=== PATIENT | female | born 1930 | race Caucasian/White ===

== ENCOUNTER 2017-01-19 05:28 | Observation (INO) | payer MEDICARE, BC ==
[2017-01-19] MEDS ORDERED: Scopolamine 1.5 MG Transdermal Patch TOP SCH (06:30)
[2017-01-19] MEDS ORDERED: Lactated Ringers 1,000 ML IV SCH (06:30)
[2017-01-19] MEDS ORDERED: Thrombin (Bovine) 5,000 Unit Kit ONE (06:45)
[2017-01-19] MEDS ORDERED: Povidone-Iodine 10% Soln 118.25 ML Bottle ONE (06:45)
[2017-01-19] MEDS ORDERED: ceFAZolin 2 GM in Sodium Chloride 0.9% 50 ML IV ONE (07:15)
[2017-01-19] MEDS ORDERED: Tranexamic Acid 720 MG in Sodium Chloride 0.9% 50 ML IV SCH (07:45)
[2017-01-19] MEDS ORDERED: Ropivacaine 49.25 ML, Ketorolac 30 MG, EPINEPHrine 0.5 MG, cloNIDine 80 MCG, Sodium Chl... INJECT ONE ×5 (08:00)
--- NOTE | 2017-01-19 09:14 | PCM.HP ---
H&P History of Present Illness - General Date of Service: 01/19/17 Admit Problem/Dx: Admission Diagnosis/Problem Admission Diagnosis/Problem Chest pain Source of Information: Patient, Family, Old Records, Provider, RN Notes Reviewed History Limitations: Reports: No Limitations - History of Present Illness Initial Comments - Free Text/Narative: Ms. Martines is an 86-year-old woman who is admitted from the home care rn unit for further evaluation and management of chest pain. She was scheduled for thoracic spine surgery today with Dr. Odilon Shanks. When she arrived in the home care rn unit for surgery this morning reported that she been experiencing some left shoulder and chest pain since she got up this morning. Pain lasted approximately 3 hours and was described as an ache occurring in the left shoulder and radiating into the chest. One previous episode of similar pain earlier this week that lasted approximately one half hour and also experience some chest pain and shoulder pain last night. Pain is possibly positional in nature although she states that it's different than the pain she is experienced in the past related to her musculoskeletal shoulder problems. She does have risk factors for coronary artery disease including her age, hypercholesterolemia, and long-standing type 2 diabetes mellitus. Troponin level is normal, EKG shows a right bundle branch block but no acute ST segment changes. Heart score is 4. Middle Back Pain Score (Numeric/FACES): 6 - Related Data Allergies/Adverse Reactions: Allergies Allergy/AdvReac Type Severity Reaction Status Date / Time metformin AdvReac Diarrhea Verified 01/18/17 15:01 morphine AdvReac Nausea and Verified 01/19/17 07:01 Vomiting Home Medications: Home Meds Blood Sugar Diagnostic [Accu-Chek Alysha Plus] 1 strip .ROUTE ASDIRECTED [History] Omeprazole 20 mg PO DAILY 12/21/16 [History] Pioglitazone [Actos] 15 mg PO DAILY 12/21/16 [History] Sulfamethoxazole/Trimethoprim [Sulfamethoxazole-Tmp Ds Tablet] 1 tab PO BID 05/28 [History] Past Medical History HEENT History: Reports: Cataract, Hard of Hearing Cardiovascular History: Reports: None Respiratory History: Reports: None Gastrointestinal History: Reports: GERD, Hiatal Hernia, Other (See Below) Other Gastrointestinal History: diverticulitis Genitourinary History: Reports: Renal Calculus, UTI, Recurrent [employer]ING [employer]OR History: Reports: Other OB/BYN History: parity: 12 gravity: 12, all vaginal deliveries Musculoskeletal History: Reports: Back Pain, Chronic Endocrine/Metabolic History: Reports: Diabetes, Type II Hematologic History: Reports: Blood Transfusion(s) Oncologic (Cancer) History: Reports: None - Infectious Disease History Infectious Disease History: Reports: Chicken Pox, Measles, Mumps, Pertussis ( Whooping Cough), Scarlet Fever, Shingles - Past Surgical History HEENT Surgical History: Reports: Cataract Surgery GI Surgical History: Reports: Appendectomy, Colonoscopy, EGD, Hernia, Abdominal Other GI Surgeries/Procedures: "bowel problems" Female Surgical History: Reports: Hysterectomy, Kidney stone extraction, Salpingo-Oophorectomy Other Female Surgeries/Procedures: type 2 diabetic Endocrine Surgical History: Reports: None Other Neurological Surgeries/Procedures: sensation: changes in LEs: left lateral tibial region: decrease in sensation. radicular pain: none now, occasional Musculoskeletal Surgical History: Reports: Shoulder Surgery, Other (See Below) Other Musculoskeletal Surgeries/Procedures:: bilateral rotator cuff repair and back surgery to L4-5, according to patient Social & Family History - Family History Family Medical History: Noncontributory - Tobacco Use Smoking Status *Q: Never Smoker - Caffeine Use Caffeine Use: Reports: Coffee - Recreational Drug Use Recreational Drug Use: No H&P Review of Systems - Review of Systems: Review Of Systems: See Below General: Reports: No Symptoms HEENT: Reports: No Symptoms Pulmonary: Reports: No Symptoms Cardiovascular: Reports: Chest Pain. Denies: Palpitations, Dyspnea on Exertion , Orthopnea, PND, Edema, Lightheadedness, Syncope Gastrointestinal: Reports: No Symptoms Genitourinary: Reports: No Symptoms Musculoskeletal: Reports: Back Pain Skin: Reports: No Symptoms Psychiatric: Reports: No Symptoms Neurological: Reports: No Symptoms Hematologic/Lymphatic: Reports: No Symptoms Immunologic: Reports: No Symptoms Exam - Exam Exam: See Below - Vital Signs Vital Signs: Last Vital Signs Temp 98.1 F 01/19/17 05:46 Pulse 98 01/19/17 05:46 Resp 18 01/19/17 05:46 BP 123/70 01/19/17 05:46 Pulse Ox 96 01/19/17 05:46 Weight: 159 lb 7 oz - Exam Quality Assessment: DVT Prophylaxis. No: Urinary Catheter General: Alert, Oriented, Cooperative HEENT: Conjunctiva Clear, Hearing Intact, Mucosa Moist & [place], Normal Nasal Septum, Posterior Pharynx Clear, Pupils Equal Neck: Supple, Trachea Midline, +2 Carotid Pulse wo Bruit Lungs: Clear to Auscultation, Normal Respiratory Effort Cardiovascular: Regular Rate, Regular Rhythm, Normal S1, Normal S2. No: Systolic Murmur, Diastolic Murmur Abdomen: Normal Bowel Sounds, Soft Back Exam: Normal Inspection, Full Range of Motion, Vertebral Tenderness Extremities: 3, Normal Inspection, 10 Skin: Warm, Dry, Intact Neurological: Cranial Nerves Intact, Normal Speech, Normal Tone. No: Focal Deficit Neuro Extensive - Mental Status: Alert, Oriented x3, Normal Mood/Affect, Normal Cognition, Memory Intact - Patient Data Lab Results Last 24 hrs: Laboratory Results - last 24 hr 01/19/17 01/19/17 01/19/17 Range/Units 07:10 07:12 07:14 WBC 7.2 (4.5-11.0) K/uL RBC 3.89 (3.30-5.50) M/uL Hgb 11.3 L (12.0-15.0) g/dL Hct 35.8 L (36.0-48.0) % MCV 92 (80-98) fL MCH 29 (27-31) pg MCHC 32 (32-36) % Plt Count 255 (150-400) K/uL Neut % (Auto) 55 (36-66) % Lymph % (Auto) 32 (24-44) % Bartholomew % (Auto) 11 H (2-6) % Eos % (Auto) 1 L (2-4) % Baso % (Auto) 0 (0-1) % Sodium (140-148) mmol/L Potassium (3.6-5.2) mmol/L Chloride (100-108) mmol/L Carbon Dioxide (21-32) mmol/L Anion Gap (5.0-14.0) mmol/L BUN (7-18) mg/dL Creatinine (0.6-1.0) mg/dL Est Cr Clr Drug Dosing mL/min Estimated GFR (MDRD) (>60) Glucose (74-106) mg/dL Calcium (8.5-10.1) mg/dL CK-MB (CK-2) 1.1 (0-3.6) mg/mL Troponin I < 0.017 (0.000-0.056) ng/mL 01/19/17 Range/Units 07:14 WBC (4.5-11.0) K/uL RBC (3.30-5.50) M/uL Hgb (12.0-15.0) g/dL Hct (36.0-48.0) % MCV (80-98) fL MCH (27-31) pg MCHC (32-36) % Plt Count (150-400) K/uL Neut % (Auto) (36-66) % Lymph % (Auto) (24-44) % Bartholomew % (Auto) (2-6) % Eos % (Auto) (2-4) % Baso % (Auto) (0-1) % Sodium 142 (140-148) mmol/L Potassium 4.0 (3.6-5.2) mmol/L Chloride 106 (100-108) mmol/L Carbon Dioxide 28 (21-32) mmol/L Anion Gap 12.0 (5.0-14.0) mmol/L BUN 28 H (7-18) mg/dL Creatinine 1.6 H (0.6-1.0) mg/dL Est Cr Clr Drug Dosing 22.20 mL/min Estimated GFR (MDRD) 31 L (>60) Glucose 133 H (74-106) mg/dL Calcium 9.0 (8.5-10.1) mg/dL CK-MB (CK-2) (0-3.6) mg/mL Troponin I (0.000-0.056) ng/mL Result Diagrams: 01/19/17 07:14 01/19/17 07:14 *Q Meaningful Use (ADM) - VTE *Q VTE Criteria *Q: - VTE Risk Assess *Q Each Risk Factor Represents 1 Point: None Total Score 1 Point Risk Factors: 0 Each Risk Factor Represents 2 Points: None Total Score 2 Point Risk Factors: 0 Each Risk Factor Represents 3 Points: Age 75 Years or Greater Total Score 3 Point Risk Factors: 3 Each Risk Factor Represents 5 Points: None Total Score 5 Point Risk Factors: 0 Venous Thromboembolism Risk Factor Score *Q: 3 - Stroke *Q Stroke Criteria *Q: - AMI *Q AMI Criteria *Q: Problem List Initiated/Reviewed/Updated: Yes Orders Last 24hrs: Active Orders 24 hr Category Date Time Status Patient Status Manage Transfer [TRANSFER] Routine ADT 01/19/17 09:01 Ordered EKG Documentation Completion [RC] ASDIRECTED Care 01/19/17 07:08 Active TYPE AND SCREEN [BBK] Routine Lab 01/19/17 05:40 Ordered Lactated Ringers [Ringers, Lactated] 1,000 ml Med 01/19/17 06:30 Active IV ASDIRECTED Scopolamine [Transderm-Scop] Med 01/19/17 06:30 Active 1.5 mg TOP Q72H Tranexamic Acid [Cyklokapron] 720 mg Med 01/19/17 07:45 Active Sodium Chloride 0.9% [Normal Saline] 50 ml IV Q3H Sequential Compression Device [OM.PC] Routine Oth 01/19/17 07:00 Ordered Resuscitation Status Routine Resus Stat 01/19/17 09:03 Ordered EKG 12 Lead [EK] Stat Ther 01/19/17 07:06 Ordered Medication Orders Lactated Ringer's (Ringers, Lactated) 1,000 mls @ 0 mls/hr IV ASDIRECTED MARYB[facility] PRN Reason: KVO Last Admin: 01/19/17 06:44 Dose: 25 mls/hr Tranexamic Acid 720 mg/ Sodium (Chloride) 57.2 mls @ 228.8 mls/hr IV Q3H [facility] Stop: 01/19/17 10:59 Scopolamine (Transderm-Scop) 1.5 mg TOP Q72H MARYBETH Stop: 01/22/17 04:30 Last Admin: 01/19/17 06:27 Dose: 1.5 mg Assessment/Plan Comment:: ASSESSMENT AND PLAN LEFT SHOULDER AND CHEST PAIN-symptoms mildly to moderately suspicious, pain is likely musculoskeletal in nature but different than what she is experienced in the past. She does have risk factors for coronary artery disease as well as an underlying right bundle branch block. Calculated HEART score is 4. -Cancel elective surgery -Observation admission to rule out myocardial infarction -Serial troponin levels -Deep scan Cardiolite study in a.m. TYPE 2 DIABETES MELLITUS -Continue outpatient medical regimen -4 times a day glucometers CHRONIC KIDNEY DISEASE STAGE III -Monitor urine output and renal function during hospital stay BACK AND RIGHT LEG PAIN -Surgery on hold pending cardiac evaluation MAINTENANCE ISSUES -DVT prophylaxis; Lovenox 30 mg subcutaneous daily -GI prophylaxis; continue outpatient omeprazole -Bains catheter; not indicated -Nutrition; consistent carb diet -Nicotinic dependence; not required CODE STATUS-FULL CODE ADMISSION STATUS-this patient will be admitted to observation status, expect no more than a one night hospital stay for evaluation and management of problems as outlined above. DISPOSITION-anticipate discharge to home after the hospital stay. PRIMARY CARE PROVIDER-
[2017-01-19] MEDS ORDERED: oxyCODONE 5 MG Tab PO PRN (09:39)
[2017-01-19] MEDS ORDERED: 50% Dextrose in Water 50 ML Syringe IV PRN (09:39)
[2017-01-19] MEDS ORDERED: Acetaminophen 325 MG Tab PO PRN (09:39)
[2017-01-19] MEDS ORDERED: Sodium Chloride 0.9% 10 ML Syringe FLUSH PRN (09:39)
[2017-01-19] MEDS ORDERED: Ondansetron 4 MG/2 ML SDV IV PRN (09:39)
[2017-01-19] MEDS ORDERED: Docusate Sodium 100 MG Cap PO PRN (09:39)
[2017-01-19] MEDS ORDERED: Polyethylene Glycol 3350 Powder 17 GM Packet PO PRN (09:39)
[2017-01-19] MEDS ORDERED: Glucose Gel 15 GM in 37.5 GM Tube PO PRN (09:39)
[2017-01-19] MEDS ORDERED: Magnesium Hydroxide 400 MG/5 ML Susp 30 ML Cup PO PRN (09:39)
[2017-01-19] MEDS: Enoxaparin 30 MG/0.3 ML Syringe SUBCUT SCH (10:17)
[2017-01-19] MEDS: PIOGLITAZONE 15 MG PO SCH (11:04)
[2017-01-19] MEDS: Aspirin 81 MG Tab.Chew PO SCH (11:05)
[2017-01-19] MEDS: OMEPRAZOLE 20MG (PTOM) PO SCH (11:05)
[2017-01-20] MEDS ORDERED: Non-Formulary Medication 1 Each (Omeprazole [Omeprazole] 20 MG) PO SCH (09:00)
[2017-01-20 09:05] VITALS: BP 145/91
[2017-01-20] MEDS ORDERED: Aminophylline 250 MG/10 ML SDV IVPUSH ONE (09:30)
[2017-01-20] MEDS: Aspirin 81 MG Tab.Chew PO SCH (09:38)
[2017-01-20] MEDS: Enoxaparin 30 MG/0.3 ML Syringe SUBCUT SCH (09:38)
[2017-01-20] MEDS: OMEPRAZOLE 20MG (PTOM) PO SCH (09:38)
[2017-01-20] MEDS: PIOGLITAZONE 15 MG PO SCH (09:38)
--- NOTE | 2017-01-20 11:07 | NM ---
Myocardial Perf Spect Multi INDICATION: Chest pain COMPARISON: None. TECHNIQUE: [employer] Nuclear medicine Cardiolite scan was performed utilizing 29.0 millicuries uptak e technetium 99m sestamibi at stress and 9.8 millicuries of technetium 99m at rest. FINDINGS: The bull's-eye views suggest partially reversible perfusion defects, however these appear fixed on the short, and vertical and horizontal long axis images. Moderate sized, fixed perfusion defects involving the anterior and inferolateral park from the apex to the mid left ventricular myocardium. The remainder of the left ventricular myocardium demonstra wilver homogeneous radiotracer uptake. Wall motion studies are within normal limits. Calculated left ve ntricular ejection fraction measures 76% at stress and 75% at rest. IMPRESSION: 1. 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
--- NOTE | 2017-01-20 14:34 | PCM.DCSUM1 ---
Discharge Summary - Hospital Course Brief History: This patient is an 86-year-old woman who was admitted from the clinical care coordinator unit for further evaluation and management of chest pain. - Discharge Data Discharge Date: 01/20/17 Discharge Disposition: Home, Self-Care 01 Condition: Good - Discharge Diagnosis/Problem(s) (1) Coronary artery disease SNOMED Code(s): 91083114 ICD Code: I25.10 - ATHSCL HEART DISEASE OF [place] CORONARY ARTERY W/O ANG PCTRS Status: Acute (2) Chest pain SNOMED Code(s): 68185388 ICD Code: R07.9 - CHEST PAIN, UNSPECIFIED Status: Acute (3) Spinal stenosis of lumbar region SNOMED Code(s): 84106789 ICD Code: M48.06 - SPINAL STENOSIS, LUMBAR REGION Status: Acute - Patient Summary/Data Hospital Course: Ms. Martines is an 86-year-old woman, who was initially seen and evaluated in the clinical care coordinator unit because of symptoms of chest pain. She had been scheduled for thoracic spine surgery with Dr. Jordan Shanks, but when she presented on the day of surgery reported that she been experiencing some pain in her left shoulder and left upper anterior chest. She reported she had one episode of pain in her chest during the week prior to surgery and on the night prior to surgery each lasting several minutes. She woke early in the morning of surgery and noted pain in her left shoulder radiating into the left chest. She has no previous history of coronary artery disease or other symptoms of chest pain. She felt the pain was different from what she experienced with her shoulder problems. Initial EKG showed no acute ST segment changes but did document underlying right bundle branch block, initial troponin level was within normal range. HEART score was calculated at 4. Because of the elevated Heart score and symptoms of chest pain she was admitted to the hospital to observation status for further evaluation and her surgery with Dr. Shanks was canceled. Follow-up troponin levels remained within normal range and she had no further symptoms of chest pain or pressure. On the day of discharge Deep scan Cardiolite study was performed, this showed 2 areas of previous moderate sized myocardial infarctions but no evidence of acute ischemia or redistribution. She will be discharged home on metoprolol 25 mg twice daily. Activity will be as tolerated and she will resume her usual diet. She is cleared for surgery in 5 days time on her thoracic spine as previously scheduled with Dr. Shanks. - Patient Instructions Diet: Heart Healthy Diet Activity: As Tolerated Other/Special Instructions: Schedule follow-up appointment with primary care provider within [address] Odilon Shanks that the patient is cleared to proceed with surgery on Wednesday, January 25. - Discharge Plan Prescriptions/Med Rec: Metoprolol Tartrate 25 mg PO BID #60 tablet busPIRone [Buspar] 5 mg PO TID PRN #20 tablet PRN Reason: Anxiety Home Medications: Home Meds Blood Sugar Diagnostic [Accu-Chek Alysha Plus] 1 strip .ROUTE ASDIRECTED [History] Omeprazole 20 mg PO DAILY 12/21/16 [History] Pioglitazone [Actos] 15 mg PO DAILY 12/21/16 [History] Sulfamethoxazole/Trimethoprim [Sulfamethoxazole-Tmp Ds Tablet] 1 tab PO BID 05/28 [History] Metoprolol Tartrate 25 mg PO BID #60 tablet 01/20/17 [Rx] busPIRone [Buspar] 5 mg PO TID PRN #20 tablet 01/20/17 [Rx] Patient Handouts: Nonspecific Chest Pain, [id number] - Patient Data Vitals - Most Recent: Last Vital Signs Temp 98.1 F 01/20/17 07:39 Pulse 87 01/20/17 09:04 Resp 23 H 01/20/17 07:00 BP 145/91 H 01/20/17 09:04 Pulse Ox 100 01/20/17 07:00 Weight - Most Recent: 169 lb 4.8 oz I&O - Last 24 hours: Intake & Output 01/19/17 01/20/17 01/20/17 22:59 06:59 14:59 Output Total 700 750 200 Balance -700 -750 -200 Lab Results - Last 24 hrs: Laboratory Results - last 24 hr 01/19/17 01/19/17 Range/Units 14:06 20:19 Troponin I < 0.017 < 0.017 (0.000-0.056) ng/mL Med Orders - Current: Current Medications Discontinued Medications Acetaminophen (Tylenol) 650 mg PO Q4H PRN PRN Reason: Pain (Mild 1-3)/fever Aminophylline (Aminophylline) 125 mg IVPUSH ONETIME ONE Stop: 01/20/17 09:31 Last Admin: 01/20/17 09:30 Dose: 125 mg Aspirin (Aspirin) 81 mg PO DAILY [facility] Last Admin: 01/20/17 09:38 Dose: 81 mg Ropivacaine 49.25 ml/Ketorolac Tromethamine 30 mg/Epinephrine HCl 0.5 mg/ Clonidine HCl 80 mcg/ Sodium Chloride 48.45 ml 0 ml INJECT ONETIME ONE Stop: 01/19/17 08:01 Dextrose (Glutose 15) 15 gm PO ASDIRECTED PRN PRN Reason: Hypoglycemia Dextrose/Water (Dextrose 50% In Water) 50 ml IV ASDIRECTED PRN PRN Reason: Hypoglycemia Docusate Sodium (Colace) 100 mg PO BID PRN PRN Reason: Constipation Enoxaparin Sodium (Lovenox) 30 mg SUBCUT DAILY [facility] Last Admin: 01/20/17 09:38 Dose: 30 mg Cefazolin Sodium 2 gm/ Sodium (Chloride) 50 mls @ 100 mls/hr IV ONETIME ONE Stop: 01/19/17 07:44 Lactated Ringer's (Ringers, Lactated) 1,000 mls @ 0 mls/hr IV ASDIRECTED [facility] PRN Reason: KVO Last Admin: 01/19/17 06:44 Dose: 25 mls/hr Tranexamic Acid 720 mg/ Sodium (Chloride) 57.2 mls @ 228.8 mls/hr IV Q3H [facility] Stop: 01/19/17 10:59 Magnesium Hydroxide (Milk Of Magnesia) 30 ml PO Q12H PRN PRN Reason: Constipation Ondansetron HCl (Zofran) 4 mg IV Q4H PRN PRN Reason: Nausea/Vomiting Oxycodone HCl (Oxycodone) 5 mg PO Q4H PRN PRN Reason: Pain (moderate 4-6) Omeprazole 20mg ( (Ptom)) 0 each PO ACBREAKFAST [facility] Last Admin: 01/20/17 09:38 Dose: 1 each Pioglitazone HCl (Actos) 15 mg PO DAILY [facility] Last Admin: 01/20/17 09:38 Dose: 15 mg Polyethylene Glycol (Miralax) 17 gm PO DAILY PRN PRN Reason: Constipation Povidone Iodine (Betadine 10% Soln) Confirm Administered Dose 1 ml .ROUTE .STK- MED ONE Stop: 01/19/17 06:46 Regadenoson (Lexiscan) 0.4 mg IVPUSH ONETIME ONE Stop: 01/20/17 09:01 Last Admin: 01/20/17 09:10 Dose: 0.4 mg Scopolamine (Transderm-Scop) 1.5 mg TOP Q72H [facility] Stop: 01/22/17 04:30 Last Admin: 01/19/17 06:27 Dose: 1.5 mg Sodium Chloride (Saline Flush) 10 ml FLUSH ASDIRECTED PRN PRN Reason: Keep Vein Open Last Admin: 01/20/17 09:12 Dose: 10 ml Thrombin (Thrombin-Jmi) Confirm Administered Dose 15,000 unit .ROUTE .STK-MED ONE Stop: 01/19/17 06:46 *Q Meaningful Use (DIS) - VTE *Q VTE Criteria *Q: - Stroke *Q Stroke Criteria *Q: - AMI *Q AMI Criteria *Q:
--- NOTE | 2017-01-21 07:08 | STRESS ---
DATE OF SERVICE: 01/20/2017 PROCEDURE: Lexiscan Cardiolite study. TECHNIQUE: Ms. Martines was infused with usual dose of Lexiscan and then received the Cardiolite injection. She noted symptoms of nausea and headache associated with Lexiscan infusion. These symptoms persisted into the postexercise period. She was given 125 mg of intravenous aminophylline and symptoms resolved quickly thereafter. Resting ECG, sinus rhythm, rate of 86, normal axis. There is prolongation of the QRS interval and pattern consistent with right bundle-branch block with associated ST-segment, T-wave abnormalities. Similar findings were noted on the post hyperventilation and standing ECGs. No significant ST-segment changes. T-wave abnormalities from baseline were seen with Lexiscan infusion or during the post infusion. She had no symptoms of chest pain or pressure, but did develop nausea and headache as noted above. There were no significant dysrhythmias noted during the monitoring. IMPRESSION: Unremarkable Lexiscan portion of Lexiscan Cardiolite study. Interpretation of the Cardiolite portion of the study is pending at this time. Papi Ram MD /[id number]
== END 2017-01-20 12:50 | disposition home or self-care (01) ==
LOC: JP.SDS 05:28 → JP.ICU 09:15
PROVIDERS: ADMIT Hospitalist; ATTEND Hospitalist
DX: R07.9 Chest pain, unspecified (principal); M48.06 Spinal stenosis, lumbar region; I25.10 Atherosclerotic heart disease of native coronary artery without angina pectoris; I12.9 Hypertensive chronic kidney disease with stage 1 through stage 4 chronic kidney disease, or unspecified chronic kidney disease; E11.22 Type 2 diabetes mellitus with diabetic chronic kidney disease; I75.022 Atheroembolism of left lower extremity; N18.3 Chronic kidney disease, stage 3 (moderate); K21.9 Gastro-esophageal reflux disease without esophagitis; Z87.442 Personal history of urinary calculi; Z87.440 Personal history of urinary (tract) infections; Z88.5 Allergy status to narcotic agent; Z90.49 Acquired absence of other specified parts of digestive tract; Z88.8 Allergy status to other drugs, medicaments and biological substances; Z90.710 Acquired absence of both cervix and uterus; Z79.899 Other long term (current) drug therapy; Z98.890 Other specified postprocedural states; Z90.722 Acquired absence of ovaries, bilateral
CPT/HCPCS: 36415; 78452; 80048; 82553; 82962; 84484; 85025; 93005; 96372; 96374; A9270; A9500; G0378; J1650; J2785; J7050; J7120; 93010; 93017; 99217; 99219

== ENCOUNTER 2017-01-22 09:23 | Observation (INO) | payer MEDICARE, BC ==
[2017-01-22] MEDS ORDERED: Sodium Chloride 0.9% 10 ML Syringe FLUSH PRN ×2 (09:57→13:59)
--- NOTE | 2017-01-22 10:04 | EDM.PDOC ---
ED HPI GENERAL MEDICAL PROBLEM - General Chief Complaint: Neuro Symptoms/Deficits Stated Complaint: SEIZURES Time Seen by Provider: 01/22/17 09:45 Source of Information: Reports: Patient, Family, Old Records History Limitations: Reports: No Limitations - History of Present Illness INITIAL COMMENTS - FREE TEXT/NARRATIVE: 86 yo female presents with onset of "spells" since yesterday. Her and her daughter who is here with her are worried these spells are seizures. Has no seizure history. Denies DE SOUZA. No tongue biting or urinary incontinence. These spells are brief and self-limited. She tends to slump over with elbows flexed and hands opening and closing each time. Duration is a couple minutes. Sometimes can tell when they are going to start, not always. Has some nausea afterwards. No hx of severe head trauma or strokes. Fell out of her chair and incurred minor injuries with today's spell. Was scheduled for some back surgery here recently and this was put on hold after she reported some left shoulder pain that was worked up and found not to be due to acute cardiac ischemia. Went to [place] yesterday for the same sx's for which she is here today. There she had an unremarkable EKG and blood work. No imaging of her head was performed. Has had hypoglycemia in the past when on metformin, this has been stopped. Recent sx's during her "spells" do not remind her of hypoglycemia. Onset Date: 01/21/17 Duration: Hour(s):, Intermittent Location: Reports: Generalized (no obvious leg involvement.) Quality: Reports: Other (no pain) Severity: Moderate Improves with: Reports: Other (time) Worsens with: Reports: Other (unknown) Context: Reports: Other (unknown) Associated Symptoms: Reports: Nausea/Vomiting (no vomiting), Seizure ( questionable), Syncope (passed out with spell today.). 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: Reports: Other (see below) (none) - Related Data Allergies Allergy/AdvReac Type Severity Reaction Status Date / Time metformin AdvReac Diarrhea Verified 01/18/17 15:01 morphine AdvReac Nausea and Verified 01/19/17 07:01 Vomiting Home Meds: Home Meds Blood Sugar Diagnostic [Accu-Chek Alysha Plus] 1 strip .ROUTE ASDIRECTED [History] Omeprazole 20 mg PO DAILY 12/21/16 [History] Pioglitazone [Actos] 15 mg PO DAILY 12/21/16 [History] Sulfamethoxazole/Trimethoprim [Sulfamethoxazole-Tmp Ds Tablet] 1 tab PO BID 05/28 [History] Metoprolol Tartrate 25 mg PO BID #60 tablet 01/20/17 [Rx] busPIRone [Buspar] 5 mg PO TID PRN #20 tablet 01/20/17 [Rx] Past Medical History HEENT History: Reports: Cataract, Hard of Hearing Cardiovascular History: Reports: None, [place] Respiratory History: Reports: None Gastrointestinal History: Reports: GERD, Hiatal Hernia, Other (See Below) Other Gastrointestinal History: diverticulitis Genitourinary History: Reports: Renal Calculus, UTI, Recurrent HEARING 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: Reports: Other OB/BYN History: parity: 12 gravity: 12, all vaginal deliveries Musculoskeletal History: Reports: Back Pain, Chronic Endocrine/Metabolic History: Reports: Diabetes, Type II Hematologic History: Reports: Blood Transfusion(s) Oncologic (Cancer) History: Reports: None - Infectious Disease History Infectious Disease History: Reports: Chicken Pox, Measles, Mumps, Pertussis ( Whooping Cough), Scarlet Fever, Shingles - Past Surgical History HEENT Surgical History: Reports: Cataract Surgery GI Surgical History: Reports: Appendectomy, Colonoscopy, EGD, Hernia, Abdominal Other GI Surgeries/Procedures: "bowel problems" Female Surgical History: Reports: Hysterectomy, Kidney stone extraction, Salpingo-Oophorectomy Other Female Surgeries/Procedures: type 2 diabetic Endocrine Surgical History: Reports: None Other Neurological Surgeries/Procedures: sensation: changes in LEs: left lateral tibial region: decrease in sensation. radicular pain: none now, occasional Musculoskeletal Surgical History: Reports: Shoulder Surgery, Other (See Below) Other Musculoskeletal Surgeries/Procedures:: bilateral rotator cuff repair and back surgery to L4-5, according to patient Social & Family History - Family History Family Medical History: Noncontributory - Tobacco Use Smoking Status *Q: Never Smoker - Caffeine Use Caffeine Use: Reports: None - Recreational Drug Use Recreational Drug Use: No ED ROS GENERAL - Review of Systems Review Of Systems: See Below Constitutional: Denies: Fever, Diaphoresis, Decreased Appetite HEENT: Reports: No Symptoms Respiratory: Reports: No Symptoms Cardiovascular: Reports: No Symptoms Endocrine: Reports: No Symptoms GI/Abdominal: Reports: Nausea (after the "spell".) : Reports: No Symptoms Musculoskeletal: Reports: No Symptoms Skin: Reports: Bruising (chronic) Neurological: Reports: Seizure (possible), Syncope. Denies: Confusion, Dizziness, Headache Psychiatric: Reports: No Symptoms - Physical Exam Exam: See Below Exam Limited By: No Limitations General Appearance: Alert, WD/WN, No Apparent Distress Eye Exam: Bilateral Eye: EOMI, Normal Inspection, PERRL Ears: Normal External Exam, Normal Canal, Hearing Grossly Normal Nose: Normal Inspection, Normal Mucosa, No Blood Throat/Mouth: Normal Inspection, Normal Lips, Normal Teeth, Normal Oropharynx, Normal Voice, No Airway Compromise, Other (No tongue injury) Head Exam: Atraumatic, Normocephalic Neck: Normal Inspection, Supple, Non-Tender Respiratory/Chest: No Respiratory Distress, Lungs Clear, Other (few scattered rhonchi noted.) Cardiovascular: Regular Rate, Rhythm GI/Abdominal: Normal Bowel Sounds, Soft, Non-Tender, No Distention Neuro Exam (Abbreviated): Alert, Oriented, CN II-XII Intact, Normal Cognition, No Motor/Sensory Deficits Back Exam: Normal Inspection Extremities: Normal Inspection, Normal Range of Motion, Non-Tender, No Pedal Edema Psychiatric: Normal Affect, Normal Mood Skin Exam: Warm, Dry, Intact, Normal Color, No Rash Course - Vital Signs Text/Narrative:: Saline lock, Keppra [address]-minimal sinus dz only Last Recorded V/S: Last Vital Signs Temp 36.5 C 01/22/17 10:20 Pulse 80 01/22/17 10:20 Resp 16 01/22/17 10:20 BP 149/95 H 01/22/17 10:20 Pulse Ox 97 01/22/17 10:20 - Orders/Labs/Meds Orders: Active Orders 24 hr Category Date Time Status Head wo Cont [CT] Stat Exams 01/22/17 09:56 Taken Sodium Chloride 0.9% [Saline Flush] Med 01/22/17 09:57 Active 10 ml FLUSH ASDIRECTED PRN Saline Lock Insert [OM.PC] Routine Oth 01/22/17 09:57 Ordered Medication Orders Sodium Chloride (Saline Flush) 10 ml FLUSH ASDIRECTED PRN PRN Reason: Keep Vein Open Last Admin: 01/22/17 10:05 Dose: 10 ml Meds: Medications Generic Name Dose Route Start Last Admin Trade Name Freq PRN Reason Stop Dose Admin Sodium Chloride 10 ml 01/22/17 09:57 01/22/17 10:05 Saline Flush FLUSH 10 ml ASDIRECTED PRN Administration Keep Vein Open Departure - Departure Time of Disposition: 11:00 Disposition: Home, Self-Care 01 Condition: Fair Clinical Impression: Seizure-like activity Clinical Impression: (Ruled Out): Seizure - Discharge Information Forms: ED Department Discharge - My Orders Last 24 Hours: My Active Orders 01/22/17 09:56 Head wo Cont [CT] Stat 01/22/17 09:57 Sodium Chloride 0.9% [Saline Flush] 10 ml FLUSH ASDIRECTED PRN Saline Lock Insert [OM.PC] Routine - Assessment/Plan Last 24 Hours: My Active Orders 01/22/17 09:56 Head wo Cont [CT] Stat 01/22/17 09:57 Sodium Chloride 0.9% [Saline Flush] 10 ml FLUSH ASDIRECTED PRN Saline Lock Insert [OM.PC] Routine
--- NOTE | 2017-01-22 10:27 | CT ---
Head wo Cont INDICATION: Question seizure, new onset yesterday. COMPARISON: None Total DLP 705. FINDINGS: No acute intracranial hemorrhage, mass, or edema. Mild generalized cerebral and cerebellar volume loss. Minimal low attenuation in the periventricular and subcortical deep white matter is no nspecific, but most compatible with chronic small-vessel ischemic changes. Tiny chronic lacunar infa rct left basal ganglia. Minimal mucosal thickening ethmoid sinuses. Fluid in the inferior right mast oid air cells; this finding can be seen in mastoiditis. Remainder unremarkable. IMPRESSION: No acute intracranial abnormality.
[2017-01-22] MEDS ORDERED: levETIRAcetam 250 MG Tab PO STA (10:36)
[2017-01-22] MEDS ORDERED: Ondansetron 4 MG Tab.DIS PO ONE (11:40)
[2017-01-22] MEDS ORDERED: LORazepam 2 MG/ML MDV IVPUSH ONE (11:47)
--- NOTE | 2017-01-22 13:16 | MR ---
Brain wo Cont INDICATION: ? seizures COMPARISON: CT head from earlier today. FINDINGS: Generalized cerebral and cerebellar volume loss. Mild scattered foci of T2 hyperintensity in the periventricular and subcortical deep white matter that are nonspecific but most compatible wi th chronic small vessel ischemic changes. Tiny chronic lacunar infarct left basal ganglia. No acute or subacute infarct. Dedicated imaging of the temporal lobes demonstrates normal hippocampal formati ons bilaterally. Mild mucosal thickening ethmoid sinuses. Fluid in the right mastoid air cells. Exam otherwise unremarkable. IMPRESSION: No acute intracranial findings. Incidental findings as above.
[2017-01-22] MEDS ORDERED: Polyethylene Glycol 3350 Powder 17 GM Packet PO PRN (13:59)
[2017-01-22] MEDS ORDERED: Magnesium Hydroxide 400 MG/5 ML Susp 30 ML Cup PO PRN (13:59)
[2017-01-22] MEDS ORDERED: 50% Dextrose in Water 50 ML Syringe IV PRN (13:59)
[2017-01-22] MEDS ORDERED: oxyCODONE 5 MG Tab PO PRN (13:59)
[2017-01-22] MEDS ORDERED: Docusate Sodium 100 MG Cap PO PRN (13:59)
[2017-01-22] MEDS ORDERED: Glucose Gel 15 GM in 37.5 GM Tube PO PRN (13:59)
[2017-01-22] MEDS ORDERED: Ondansetron 4 MG/2 ML SDV IV PRN (13:59)
[2017-01-22] MEDS ORDERED: Enoxaparin 40 MG/0.4 ML Syringe SUBCUT SCH (13:59)
[2017-01-22] MEDS ORDERED: Insulin Aspart 100 Units/ML 3 ML Pen SUBCUT SCH (13:59)
[2017-01-22] MEDS ORDERED: LORazepam 2 MG/ML MDV IV PRN (13:59)
[2017-01-22] MEDS ORDERED: Sodium Chloride 0.9% 1,000 ML IV SCH ×2 (14:00→20:00)
[2017-01-22] MEDS ORDERED: Sodium Chloride 0.9% 500 ML IV ONE ×3 (14:10→17:44)
--- NOTE | 2017-01-22 14:10 | PCM.HP ---
H&P History of Present Illness - General Date of Service: 01/22/17 Admit Problem/Dx: Admission Diagnosis/Problem Admission Diagnosis/Problem Seizure Source of Information: Patient, Family, Provider, RN Notes Reviewed History Limitations: Reports: No Limitations - History of Present Illness Initial Comments - Free Text/Narative: Ms. Martines is an 86-year-old woman who is admitted to observation status through the emergency department after experiencing episodes of loss of consciousness associated with transient seizure-like activity. She was hospitalized at this facility on observation status 2 days ago, she had been scheduled for spinal surgery. When she arrived for surgery reported that she been experiencing symptoms of chest pain. 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 She was discharged home on beta ricky therapy with metoprolol 25 mg twice daily and BuSpar 3 times daily. She felt well until yesterday morning, approximately hour and a half after taking her morning medications she felt lightheaded and then experienced loss of consciousness followed by a short episode of seizure activity. Whole episode lasted 30-60 seconds. She was evaluated in the emergency department and veronica and no significant abnormalities were identified. The recommended that she stop taking the BuSpar. She felt somewhat tired during the day yesterday but had no further episodes. This morning she was sitting up shortly after getting up and again felt lightheaded, experienced a syncopal episode and fell to the floor. This second episode was unwitnessed. She had a third episode when driving to the emergency room that lasted approximately 30 seconds and again experienced tonic-clonic movement. Her daughter who witnessed this episode states that she lost consciousness first and then developed the jerking movements. On evaluation in the emergency department CT scan of the head without contrast was obtained and was unremarkable. She experienced a fourth episode while in the emergency department blood pressure had been trending somewhat low but there was no evidence of significant bradycardia or tachycardia. She was fairly alert right after the episode and did not appear to be postictal. MRI of the head was obtained with and without contrast and shows no significant abnormalities. - Related Data Allergies/Adverse Reactions: Allergies Allergy/AdvReac Type Severity Reaction Status Date / Time metformin AdvReac Diarrhea Verified 01/18/17 15:01 morphine AdvReac Nausea and Verified 01/19/17 07:01 Vomiting Home Medications: Home Meds Blood Sugar Diagnostic [Accu-Chek Alysha Plus] 1 strip .ROUTE ASDIRECTED [History] Omeprazole 20 mg PO DAILY 12/21/16 [History] Pioglitazone [Actos] 15 mg PO DAILY 12/21/16 [History] Sulfamethoxazole/Trimethoprim [Sulfamethoxazole-Tmp Ds Tablet] 1 tab PO BID 05/28 [History] Metoprolol Tartrate 25 mg PO BID #60 tablet 01/20/17 [Rx] busPIRone [Buspar] 5 mg PO TID PRN #20 tablet 01/20/17 [Rx] levETIRAcetam [Keppra] 500 mg PO BID #60 tablet 01/22/17 [Rx] Past Medical History HEENT History: Reports: Cataract, Hard of Hearing Cardiovascular History: Reports: None, [place] Respiratory History: Reports: None Gastrointestinal History: Reports: GERD, Hiatal Hernia, Other (See Below) Other Gastrointestinal History: diverticulitis Genitourinary History: Reports: Renal Calculus, UTI, 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: Other OB/BYN History: parity: 12 gravity: 12, all vaginal deliveries Musculoskeletal History: Reports: Back Pain, Chronic Endocrine/Metabolic History: Reports: Diabetes, Type II Hematologic History: Reports: Blood Transfusion(s) Oncologic (Cancer) History: Reports: None - Infectious Disease History Infectious Disease History: Reports: Chicken Pox, Measles, Mumps, Pertussis ( Whooping Cough), Scarlet Fever, Shingles - Past Surgical History HEENT Surgical History: Reports: Cataract Surgery GI Surgical History: Reports: Appendectomy, Colonoscopy, EGD, Hernia, Abdominal Other GI Surgeries/Procedures: "bowel problems" Female Surgical History: Reports: Hysterectomy, Kidney stone extraction, Salpingo-Oophorectomy Other Female Surgeries/Procedures: type 2 diabetic Endocrine Surgical History: Reports: None Other Neurological Surgeries/Procedures: sensation: changes in LEs: left lateral tibial region: decrease in sensation. radicular pain: none now, occasional Musculoskeletal Surgical History: Reports: Shoulder Surgery, Other (See Below) Other Musculoskeletal Surgeries/Procedures:: bilateral rotator cuff repair and back surgery to L4-5, according to patient Social & Family History - Family History Family Medical History: Noncontributory - Tobacco Use Smoking Status *Q: Never Smoker - Caffeine Use Caffeine Use: Reports: None - Recreational Drug Use Recreational Drug Use: No H&P Review of Systems - Review of Systems: Review Of Systems: See Below General: Reports: Weakness. Denies: Fever, Chills HEENT: Reports: No Symptoms Pulmonary: Reports: No Symptoms Cardiovascular: Reports: Lightheadedness, Syncope. Denies: Chest Pain, Palpitations, Dyspnea on Exertion, Orthopnea, PND, Edema Gastrointestinal: Reports: No Symptoms Genitourinary: Reports: No Symptoms Musculoskeletal: Reports: Back Pain Skin: Reports: No Symptoms Psychiatric: Reports: No Symptoms Neurological: Reports: Seizure, Syncope Hematologic/Lymphatic: Reports: No Symptoms Immunologic: Reports: No Symptoms Exam - Exam Exam: See Below - Vital Signs Vital Signs: Last Vital Signs Temp 96.0 F 01/22/17 13:28 Pulse 89 01/22/17 13:28 Resp 14 01/22/17 13:28 BP 113/46 L 01/22/17 13:28 Pulse Ox 94 L 01/22/17 13:28 Weight: 158 lb - Exam Quality Assessment: DVT Prophylaxis General: Alert, Oriented, Cooperative HEENT: Conjunctiva Clear, Hearing Intact, Mucosa Moist & [place], Nares Patent, Normal Nasal Septum, Posterior Pharynx Clear, Pupils Equal Neck: Supple, Trachea Midline, +2 Carotid Pulse wo Bruit Lungs: Clear to Auscultation, Normal Respiratory Effort Cardiovascular: Regular Rate, Regular Rhythm, Normal S1, Normal S2. No: Bradycardia, Tachycardia, Systolic Murmur, Diastolic Murmur Abdomen: Normal Bowel Sounds, Soft Back Exam: Normal Inspection, Vertebral Tenderness Extremities: 3, Normal Inspection, 10 Skin: Warm, Dry, Intact Neurological: Cranial Nerves Intact, Strength Equal Bilateral, Normal Speech, Normal Tone, Sensation Intact. No: Focal Deficit Neuro Extensive - Mental Status: Alert, Oriented x3, Normal Mood/Affect, Normal Cognition *Q Meaningful Use (ADM) - VTE *Q VTE Criteria *Q: - VTE Risk Assess *Q Each Risk Factor Represents 1 Point: None Total Score 1 Point Risk Factors: 0 Each Risk Factor Represents 2 Points: None Total Score 2 Point Risk Factors: 0 Each Risk Factor Represents 3 Points: Age 75 Years or Greater Total Score 3 Point Risk Factors: 3 Each Risk Factor Represents 5 Points: None Total Score 5 Point Risk Factors: 0 Venous Thromboembolism Risk Factor Score *Q: 3 - Stroke *Q Stroke Criteria *Q: - AMI *Q AMI Criteria *Q: Problem List Initiated/Reviewed/Updated: Yes Orders Last 24hrs: Active Orders 24 hr Category Date Time Status Patient Status [ADT] Routine ADT 01/22/17 13:59 Active Blood Glucose Check, Bedside [RC] QIDACANDBED Care 01/22/17 13:59 Active Communication Order [RC] ASDIRECTED Care 01/22/17 13:59 Active Diabetes Education [RC] Click to Edit Care 01/22/17 13:59 Active Intake and Output [RC] QSHIFT Care 01/22/17 13:59 Active Notify Provider Vital Signs [RC] ASDIRECTED Care 01/22/17 13:59 Active Notify Provider [RC] PRN Care 01/22/17 13:59 Active Orthostatic Vital Signs [RC] Q6HR Care 01/22/17 13:59 Active Oxygen Therapy [RC] PRN Care 01/22/17 13:59 Active Up With Assistance [RC] ASDIRECTED Care 01/22/17 13:59 Active VTE/DVT Education [RC] Per Unit Routine Care 01/22/17 13:59 Active Vital Signs [RC] Q4H Care 01/22/17 13:59 Active Consistent Carbohydrate Diet [DIET] Diet 01/22/17 Lunch Active CBC WITH AUTO DIFF [HEME] Stat Lab 01/22/17 13:59 Ordered COMPREHENSIVE METABOLIC PN,CMP [CHEM] Stat Lab 01/22/17 13:59 Ordered GLUCOSE POC LAB TO COLLECT [POC] QIDACANDBED Lab 01/22/17 16:30 Ordered GLUCOSE POC LAB TO COLLECT [POC] QIDACANDBED Lab 01/22/17 21:00 Ordered GLUCOSE POC LAB TO COLLECT [POC] QIDACANDBED Lab 01/23/17 07:30 Ordered GLUCOSE POC LAB TO COLLECT [POC] QIDACANDBED Lab 01/23/17 11:30 Ordered GLUCOSE POC LAB TO COLLECT [POC] QIDACANDBED Lab 01/23/17 16:30 Ordered GLUCOSE POC LAB TO COLLECT [POC] QIDACANDBED Lab 01/23/17 21:00 Ordered GLUCOSE POC LAB TO COLLECT [POC] QIDACANDBED Lab 01/24/17 07:30 Ordered GLUCOSE POC LAB TO COLLECT [POC] QIDACANDBED Lab 01/24/17 11:30 Ordered GLUCOSE POC LAB TO COLLECT [POC] QIDACANDBED Lab 01/24/17 16:30 Ordered GLUCOSE POC LAB TO COLLECT [POC] QIDACANDBED Lab 01/24/17 21:00 Ordered MAGNESIUM [CHEM] Stat Lab 01/22/17 13:59 Ordered Acetaminophen [Tylenol] Med 01/22/17 13:59 Active 650 mg PO Q4H PRN Dextrose 50% in Water Med 01/22/17 13:59 Active 50 ml IV ONETIME PRN Dextrose [Glutose 15] Med 01/22/17 13:59 Active 15 gm PO ONETIME PRN Docusate Sodium [Colace] Med 01/22/17 13:59 Active 100 mg PO BID PRN Enoxaparin [Lovenox] Med 01/22/17 13:59 Ordered 40 mg SUBCUT DAILY Insulin Aspart [NovoLOG] Med 01/22/17 13:59 Ordered See Protocol SUBCUT ASDIRECTED LORazepam [Ativan] Med 01/22/17 13:59 Ordered 0.5 mg IV Q2H PRN Magnesium Hydroxide [Milk of Magnesia] Med 01/22/17 13:59 Ordered 30 ml PO Q12H PRN Ondansetron [Zofran] Med 01/22/17 13:59 Ordered 4 mg IV Q4H PRN Polyethylene Glycol 3350 [MiraLAX] Med 01/22/17 13:59 Ordered 17 gm PO DAILY PRN Sodium Chloride 0.9% [Normal Saline] 1,000 ml Med 01/22/17 14:00 Ordered IV ASDIRECTED Sodium Chloride 0.9% [Normal Saline] 1,000 ml Med 01/22/17 15:00 Ordered IV ASDIRECTED Sodium Chloride 0.9% [Saline Flush] Med 01/22/17 13:59 Ordered 10 ml FLUSH ASDIRECTED PRN levETIRAcetam [Keppra] Med 01/22/17 21:00 Ordered 500 mg PO BID oxyCODONE Med 01/22/17 13:59 Ordered 5 mg PO Q4H PRN Saline Lock Insert [OM.PC] Routine Oth 01/22/17 13:59 Ordered Seizure Precautions [OM.PC] Routine Oth 01/22/17 13:59 Ordered Resuscitation Status Routine Resus Stat 01/22/17 12:32 Ordered Medication Orders Acetaminophen (Tylenol) 650 mg PO Q4H PRN PRN Reason: Pain (Mild 1-3)/fever Dextrose (Glutose 15) 15 gm PO ONETIME PRN PRN Reason: Hypoglycemia Dextrose/Water (Dextrose 50% In Water) 50 ml IV ONETIME PRN PRN Reason: Hypoglycemia Docusate Sodium (Colace) 100 mg PO BID PRN PRN Reason: Constipation Enoxaparin Sodium (Lovenox) 40 mg SUBCUT DAILY [facility] Sodium Chloride (Normal Saline) 1,000 mls @ 500 mls/hr IV ASDIRECTED [facility] Stop: 01/22/17 15:01 Sodium Chloride (Normal Saline) 1,000 mls @ 100 mls/hr IV ASDIRECTED [facility] Insulin Aspart (Novolog) 0 unit SUBCUT ASDIRECTED MARYBETH PRN Reason: Protocol Levetiracetam (Keppra) 500 mg PO BID MARYBETH Lorazepam (Ativan) 0.5 mg IV Q2H PRN PRN Reason: Anxiety Magnesium Hydroxide (Milk Of Magnesia) 30 ml PO Q12H PRN PRN Reason: Constipation Non-Formulary Medication (Omeprazole [Omeprazole]) 20 mg PO DAILY [facility] Ondansetron HCl (Zofran) 4 mg IV Q4H PRN PRN Reason: Nausea/Vomiting Oxycodone HCl (Oxycodone) 5 mg PO Q4H PRN PRN Reason: Pain (moderate 4-6) Pioglitazone HCl (Actos) 15 mg PO DAILY [facility] Polyethylene Glycol (Miralax) 17 gm PO DAILY PRN PRN Reason: Constipation Sodium Chloride (Saline Flush) 10 ml FLUSH ASDIRECTED PRN PRN Reason: Keep Vein Open Assessment/Plan Comment:: ASSESSMENT AND PLAN SYNCOPAL EPISODES-strongly suspect that this is the cause of the spells that she 's had over the past 36 hours. I suspect that she becomes syncopal and then has transient tonic-clonic movements consistent with seizure. She is fairly alert and interactive almost immediately following these events which I think makes primary seizure much less likely. Given the fact that these of developed discharge, I suspect that the metoprolol is lowering her blood pressure and that she is experienced enough hypotension the cause syncopal episodes. -IV fluids for hydration -Discontinue metoprolol and BuSpar -Seizure precautions -Orthostatic vital signs -Hold Keppra -IV lorazepam as needed for any recurrent seizure activity RECENT CHEST PAIN-no episodes of chest pain since last admission. [place] scan Cardiolite study showed no evidence of ischemia, but did document to areas of previous myocardial infarction. -Hold metoprolol -Continue aspirin SPINAL STENOSIS -Plan to hold on surgery pending evaluation of current problems TYPE 2 DIABETES MELLITUS -Continue outpatient therapy -4 times a day glucometers -Low-dose sliding scale NovoLog MAINTENANCE ISSUES -DVT prophylaxis;Lovenox 40 mg subcutaneous daily -GI prophylaxis;not indicated -Bains catheter;not indicated -Nutrition;consistent carb diet -Nicotinic dependence;not required CODE STATUS-FULL CODE ADMISSION STATUS-this patient will be admitted to observation status, expect no more than a one night hospital stay for evaluation and management of problems as outlined above. DISPOSITION-anticipate discharge to home after the hospital stay. PRIMARY CARE PROVIDER-
[2017-01-22] MEDS: Enoxaparin 30 MG/0.3 ML Syringe SUBCUT SCH (16:14)
[2017-01-22] MEDS: Sodium Chloride 0.9% 1,000 ML IV SCH (19:16)
[2017-01-22] MEDS ORDERED: levETIRAcetam 250 MG Tab PO SCH (21:00)
[2017-01-23] MEDS: Sodium Chloride 0.9% 1,000 ML IV SCH (01:12)
[2017-01-23] MEDS: OMEPRAZOLE 20MG (PTOM) PO SCH (08:11)
[2017-01-23] MEDS: PIOGLITAZONE 15 MG PO SCH (08:11)
[2017-01-23] MEDS: Acetaminophen 325 MG Tab PO PRN ×2 (08:12→16:44)
[2017-01-23] MEDS ORDERED: Pneumococcal Polyvalent-23 Vaccine 0.5 ML SDV IM ONE (09:00)
[2017-01-23] MEDS ORDERED: Non-Formulary Medication 1 Each (Omeprazole [Omeprazole] 20 MG) PO SCH (09:00)
[2017-01-23] MEDS ORDERED: Magnesium Sulfate/Water 2 GM in Premix Bag 1 BAG IV ONE (12:30)
--- NOTE | 2017-01-23 12:36 | PCM.PN ---
- General Info Date of Service: 01/23/17 Functional Status: Reports: tolerating diet, ambulating, urinating - Review of Systems General: Reports: Weakness. Denies: Fever, Chills Pulmonary: Reports: no symptoms Cardiovascular: Reports: Lightheadedness. Denies: Chest Pain, Palpitations, Dyspnea on Exertion, Orthopnea, PND, Edema Gastrointestinal: Reports: No symptoms Systems Review Comment:: This patient continues to feel somewhat weak and lightheaded, the hope had been that her metoprolol would've cleared by now and that blood pressure would have improved significantly. Unfortunately she has had some ongoing difficulty with hypotension, although minimal symptoms. Vital signs have otherwise been stable and she has remained afebrile. There has been no further syncopal episodes or evidence of seizure activity. - Patient Data Vitals - most recent: Last Vital Signs Temp 97.2 F 01/23/17 11:00 Pulse 64 01/23/17 11:00 Resp 16 01/23/17 11:00 BP 92/44 L 01/23/17 11:46 Pulse Ox 92 L 01/23/17 11:00 Orthostatic Blood Pressure [ 87/49 Side, Right] Orthostatic Blood Pressure [ 82/51 Sitting] Orthostatic Blood Pressure [ 91/51 Standing] Orthostatic Blood Pressure [ 67/37 Side, Left] Weight - most recent: 158 lb I&O - last 24 hours: Intake & Output 01/22/17 01/23/17 01/23/17 22:59 06:59 14:59 Intake Total 2403 2046 320 Output Total 200 300 400 Balance 2203 1746 -80 Lab Results last 24 hrs: Laboratory Results - last 24 hr 01/22/17 01/22/17 Range/Units 14:10 14:10 WBC 8.2 (4.5-11.0) K/uL RBC 3.62 (3.30-5.50) M/uL Hgb 10.2 L (12.0-15.0) g/dL Hct 33.5 L (36.0-48.0) % MCV 93 (80-98) fL MCH 28 (27-31) pg MCHC 30 L (32-36) % Plt Count 219 (150-400) K/uL Neut % (Auto) 79 H (36-66) % Lymph % (Auto) 13 L (24-44) % [place] % (Auto) 7 H (2-6) % Eos % (Auto) 0 L (2-4) % Baso % (Auto) 0 (0-1) % Sodium 141 (140-148) mmol/L Potassium 4.4 (3.6-5.2) mmol/L Chloride 107 (100-108) mmol/L Carbon Dioxide 29 (21-32) mmol/L Anion Gap 5.5 (5.0-14.0) mmol/L BUN 30 H (7-18) mg/dL Creatinine 1.5 H (0.6-1.0) mg/dL Est Cr Clr Drug Dosing 23.68 mL/min Estimated GFR (MDRD) 33 L (>60) Glucose 116 H (74-106) mg/dL Calcium 8.6 (8.5-10.1) mg/dL Magnesium 1.6 L (1.8-2.4) mg/dL Total Bilirubin 0.2 (0.2-1.0) mg/dL AST 15 (15-37) U/L ALT 18 (12-78) U/L Alkaline Phosphatase 61 (46-116) U/L Total Protein 6.2 L (6.4-8.2) g/dL Albumin 2.7 L (3.4-5.0) g/dL Globulin 3.5 (2.3-3.5) g/dL Albumin/Globulin Ratio 0.8 L (1.2-2.2) Med Orders - Current: Current Medications Acetaminophen (Tylenol) 650 mg PO Q4H PRN PRN Reason: Pain (Mild 1-3)/fever Last Admin: 01/23/17 08:12 Dose: 650 mg Dextrose (Glutose 15) 15 gm PO ONETIME PRN PRN Reason: Hypoglycemia Dextrose/Water (Dextrose 50% In Water) 50 ml IV ONETIME PRN PRN Reason: Hypoglycemia Docusate Sodium (Colace) 100 mg PO BID PRN PRN Reason: Constipation Last Admin: 01/23/17 08:13 Dose: 100 mg Enoxaparin Sodium (Lovenox) 30 mg SUBCUT Q24H MARYBETH Last Admin: 01/22/17 16:14 Dose: 30 mg Magnesium Sulfate 2 gm/ Premix 50 mls @ 25 mls/hr IV ONETIME ONE Stop: 01/23/17 14:29 Insulin Aspart (Novolog) 0 unit SUBCUT ASDIRECTED MARYBETH PRN Reason: Protocol Lorazepam (Ativan) 0.5 mg IV Q2H PRN PRN Reason: Anxiety Magnesium Hydroxide (Milk Of Magnesia) 30 ml PO Q12H PRN PRN Reason: Constipation Ondansetron HCl (Zofran) 4 mg IV Q4H PRN PRN Reason: Nausea/Vomiting Oxycodone HCl (Oxycodone) 5 mg PO Q4H PRN PRN Reason: Pain (moderate 4-6) Omeprazole 20mg ( (Ptom)) 0 each PO ACBREAKFAST [facility] Last Admin: 01/23/17 08:11 Dose: 1 each Pioglitazone HCl (Actos) 15 mg PO DAILY [facility] Last Admin: 01/23/17 08:11 Dose: 15 mg Polyethylene Glycol (Miralax) 17 gm PO DAILY PRN PRN Reason: Constipation Sodium Chloride (Saline Flush) 10 ml FLUSH ASDIRECTED PRN PRN Reason: Keep Vein Open Discontinued Medications Sodium Chloride (Normal Saline) 1,000 mls @ 500 mls/hr IV ASDIRECTED [facility] Stop: 01/22/17 15:01 Sodium Chloride (Normal Saline) 1,000 mls @ 100 mls/hr IV ASDIRECTED [facility] Last Admin: 01/23/17 01:12 Dose: 100 mls/hr Sodium Chloride (Normal Saline) 500 mls @ 500 mls/hr IV .BOLUS ONE Stop: 01/22/17 15:09 Last Admin: 01/22/17 14:10 Dose: 500 mls/hr Sodium Chloride (Normal Saline) 500 mls @ 500 mls/hr IV .BOLUS ONE Stop: 01/22/17 17:15 Last Admin: 01/22/17 16:23 Dose: 500 mls/hr Sodium Chloride (Normal Saline) 500 mls @ 500 mls/hr IV .BOLUS ONE Stop: 01/22/17 18:43 Last Admin: 01/22/17 17:58 Dose: 500 mls/hr Sodium Chloride (Normal Saline) 1,000 mls @ 500 mls/hr IV ASDIRECTED [facility] Stop: 01/22/17 21:00 Last Admin: 01/22/17 20:15 Dose: 500 mls/hr Levetiracetam (Keppra) 500 mg PO NOW STA Stop: 01/22/17 10:37 Last Admin: 01/22/17 10:52 Dose: 500 mg Levetiracetam (Keppra) 500 mg PO BID MARYBETH Lorazepam (Ativan) 0.5 mg IVPUSH ONETIME ONE Stop: 01/22/17 11:48 Last Admin: 01/22/17 11:57 Dose: 0.5 mg Ondansetron HCl (Zofran Odt) 4 mg PO ONETIME ONE Stop: 01/22/17 11:41 Last Admin: 01/22/17 11:48 Dose: 4 mg Pneumococcal Polyvalent Vaccine (Pneumovax 23) 0.5 ml IM .ONCE ONE Stop: 01/23/17 09:01 Last Admin: 01/23/17 09:15 Dose: 0.5 ml Sodium Chloride (Saline Flush) 10 ml FLUSH ASDIRECTED PRN PRN Reason: Keep Vein Open Last Admin: 01/22/17 10:05 Dose: 10 ml - Exam Quality Assessment: DVT prophylaxis General: alert, oriented, cooperative Lungs: Clear to auscultation, Normal respiratory effort Cardiovascular: Regular Rate, Regular Rhythm, No Murmurs Abdomen: bowel sounds present, soft, no tenderness, no distension Extremities: no edema Skin: warm, dry, intact - Problem List Review Problem List Initiated/Reviewed/Updated: Yes - My Orders Last 24 Hours: My Active Orders 01/22/17 12:32 Resuscitation Status Routine 01/22/17 13:59 Patient Status [ADT] Routine Blood Glucose Check, Bedside [RC] QIDACANDBED Communication Order [RC] ASDIRECTED Diabetes Education [RC] Click to Edit Intake and Output [RC] QSHIFT Notify Provider Vital Signs [RC] ASDIRECTED Notify Provider [RC] PRN Orthostatic Vital Signs [RC] Q6HR Oxygen Therapy [RC] PRN Up With Assistance [RC] ASDIRECTED VTE/DVT Education [RC] Per Unit Routine Vital Signs [RC] Q4H Acetaminophen [Tylenol] 650 mg PO Q4H PRN Dextrose 50% in Water 50 ml IV ONETIME PRN Dextrose [Glutose 15] 15 gm PO ONETIME PRN Docusate Sodium [Colace] 100 mg PO BID PRN Insulin Aspart [NovoLOG] See Protocol SUBCUT ASDIRECTED LORazepam [Ativan] 0.5 mg IV Q2H PRN Magnesium Hydroxide [Milk of Magnesia] 30 ml PO Q12H PRN Ondansetron [Zofran] 4 mg IV Q4H PRN Polyethylene Glycol 3350 [MiraLAX] 17 gm PO DAILY PRN Sodium Chloride 0.9% [Saline Flush] 10 ml FLUSH ASDIRECTED PRN oxyCODONE 5 mg PO Q4H PRN Saline Lock Insert [OM.PC] Routine Seizure Precautions [OM.PC] Routine 01/22/17 16:00 Enoxaparin [Lovenox] 30 mg SUBCUT Q24H 01/22/17 Lunch Consistent Carbohydrate Diet [DIET] 01/23/17 07:30 Patient's Own Medication [Ptom] 0 each PO ACBREAKFAST 01/23/17 11:48 Convert IV to Saline Lock [OM.PC] Routine 01/23/17 12:30 Magnesium Sulfate/Water [Magnesium Sulfate 2 GM in Water 50 ML] 2 gm Premix Bag 1 bag IV ONETIME 01/23/17 16:30 GLUCOSE POC LAB TO COLLECT [POC] QIDACANDBED 01/23/17 21:00 GLUCOSE POC LAB TO COLLECT [POC] QIDACANDBED 01/24/17 05:00 BASIC METABOLIC PANEL,BMP [CHEM] Timed CBC WITH AUTO DIFF [HEME] Timed 01/24/17 07:30 GLUCOSE POC LAB TO COLLECT [POC] QIDACANDBED 01/24/17 11:30 GLUCOSE POC LAB TO COLLECT [POC] QIDACANDBED 01/24/17 16:30 GLUCOSE POC LAB TO COLLECT [POC] QIDACANDBED 01/24/17 21:00 GLUCOSE POC LAB TO COLLECT [POC] QIDACANDBED - Plan Plan:: ASSESSMENT AND PLAN SYNCOPAL EPISODES-strongly suspect that this is the cause of the spells that she 's had over the past 36 hours. I suspect that she becomes syncopal and then has transient tonic-clonic movements consistent with seizure. Persistent hypotension , no further syncopal episodes. No other etiology identified other than probable medication effect with metoprolol -Saline lock IV -Discontinue metoprolol and BuSpar -Seizure precautions -Orthostatic vital signs -Hold Keppra -IV lorazepam as needed for any recurrent seizure activity RECENT CHEST PAIN-no episodes of chest pain since last admission. [place] scan Cardiolite study showed no evidence of ischemia, but did document to areas of previous myocardial infarction. -Hold metoprolol -Continue aspirin SPINAL STENOSIS -Plan to hold on surgery pending evaluation of current problems TYPE 2 DIABETES MELLITUS -Continue outpatient therapy -4 times a day glucometers -Low-dose sliding scale NovoLog MAINTENANCE ISSUES -DVT prophylaxis;Lovenox 40 mg subcutaneous daily -GI prophylaxis;not indicated -Bains catheter;not indicated -Nutrition;consistent carb diet -Nicotinic dependence;not required CODE STATUS-FULL CODE ADMISSION STATUS-this patient will be admitted to observation status, expect no more than a one night hospital stay for evaluation and management of problems as outlined above. DISPOSITION-anticipate discharge to home after the hospital stay. PRIMARY CARE PROVIDER-
[2017-01-23] MEDS: Enoxaparin 30 MG/0.3 ML Syringe SUBCUT SCH (16:34)
[2017-01-24 07:38] VITALS: BP 125/67
[2017-01-24] MEDS: PIOGLITAZONE 15 MG PO SCH (08:07)
[2017-01-24] MEDS: OMEPRAZOLE 20MG (PTOM) PO SCH (08:07)
--- NOTE | 2017-01-24 11:24 | PCM.DCSUM1 ---
Discharge Summary - Hospital Course Brief History: Ms. Martines is an 86-year-old woman who was admitted to observation status through the emergency department for further evaluation and management of syncopal episodes with associated seizure-like activity. - Discharge Data Discharge Date: 01/24/17 Discharge Disposition: Home, Self-Care 01 Condition: Fair - Discharge Diagnosis/Problem(s) (1) Syncope, convulsive SNOMED Code(s): 505234296 ICD Code: R55 - SYNCOPE AND COLLAPSE Status: Acute Current Visit: Yes (2) Hypotension due to drugs Status: Acute Current Visit: Yes (3) Coronary artery disease SNOMED Code(s): 57697955 ICD Code: I25.10 - ATHSCL HEART DISEASE OF [place] CORONARY ARTERY W/O ANG PCTRS Status: Acute Current Visit: No (4) Spinal stenosis of lumbar region SNOMED Code(s): 12168384 ICD Code: M48.06 - SPINAL STENOSIS, LUMBAR REGION Status: Acute Current Visit: No - Patient Summary/Data Hospital Course: Ms. Martines is an 86-year-old woman she had been scheduled for spinal surgery to correct spinal stenosis on January 19. When she arrived for the surgery reported that she'd been experiencing left shoulder and chest pain over the past 24 hours. Initial EKG showed a right bundle branch block but no acute ST segment changes and her initial troponin level was normal. She was admitted to the hospital, serial troponin levels were negative for any evidence of myocardial infarction. Deep scan Cardiolite study was obtained that showed 2 areas of moderate size previous myocardial infarctions but no evidence of active ischemia. She was discharged home on aspirin and was started on low-dose metoprolol at 25 mg twice daily. Over the next 2 days she experienced 3 episodes with loss of consciousness associated with convulsive activity. Each of these episodes last less than a minute, the first development was less of clot consciousness followed by brief seizure-like activity. She presented to the emergency department on January 22 for further evaluation of these episodes. CT scan of the head was unremarkable and MRI was obtained with and without contrast that was also unremarkable. He was an episode that occurred while in the emergency department similar to the previous ones with loss of consciousness followed by consult also of activity. It was felt that these were not seizures causing loss of consciousness but rather syncopal episodes with convulsive activity. After admission she was noted to have significant hypotension with systolic pressures into the 70s and it was felt likely that the low blood pressure and resultant syncopal episodes were secondary to the beta ricky therapy that she'd been started on earlier in the week. Beta blockers were held at the time of admission and she was not given antiepileptic therapy. Over the next 2 days her blood pressure gradually improved and by the day of discharge 2 days later she no longer was experiencing hypotension and had gone 2 days without loss of consciousness. She will be discharged to home and will stay with family over the next several days. Echocardiogram will be obtained this next week for further evaluation of left ventricular function and to rule out valvular disease. Follow-up appointment will be scheduled with her primary care provider in [facility] in 7-14 days. Activity will be as tolerated and she will remain on a diabetic diet. Blood sugars were monitored through her hospital stay and were found to be stable on current therapy. - Patient Instructions Diet: Diabetic Diet Activity: As Tolerated Other/Special Instructions: Schedule outpatient echocardiogram for January 25. Schedule follow-up appointment with primary care provider in [facility] in 7-14 days. - Discharge Plan Home Medications: Home Meds Blood Sugar Diagnostic [Accu-Chek Alysha Plus] 1 strip .ROUTE ASDIRECTED [History] Omeprazole 20 mg PO DAILY 12/21/16 [History] Pioglitazone [Actos] 15 mg PO DAILY 12/21/16 [History] Sulfamethoxazole/Trimethoprim [Sulfamethoxazole-Tmp Ds Tablet] 1 tab PO BID 05/28 [History] - Patient Data Vitals - Most Recent: Last Vital Signs Temp 97.7 F 01/24/17 07:37 Pulse 64 01/24/17 07:37 Resp 16 01/24/17 07:37 BP 125/67 01/24/17 07:37 Pulse Ox 94 L 01/24/17 07:37 Orthostatic Blood Pressure [ 122/79 Supine] Orthostatic Blood Pressure [ 87/49 Side, Right] Orthostatic Blood Pressure [ 125/67 Sitting] Orthostatic Blood Pressure [ 105/68 Standing] Orthostatic Blood Pressure [ 67/37 Side, Left] Weight - Most Recent: 158 lb I&O - Last 24 hours: Intake & Output 01/23/17 01/24/17 01/24/17 22:59 06:59 14:59 Intake Total 1977 420 Output Total 450 1275 300 Balance 1527 -1275 120 Lab Results - Last 24 hrs: Laboratory Results - last 24 hr 01/23/17 01/24/17 01/24/17 Range/Units 14:35 06:13 06:13 WBC 6.5 (4.5-11.0) K/uL RBC 3.16 L (3.30-5.50) M/uL Hgb 9.0 L (12.0-15.0) g/dL Hct 30.1 L (36.0-48.0) % MCV 95 (80-98) fL MCH 29 (27-31) pg MCHC 30 L (32-36) % Plt Count 184 (150-400) K/uL Neut % (Auto) 63 (36-66) % Lymph % (Auto) 23 L (24-44) % [place] % (Auto) 12 H (2-6) % Eos % (Auto) 2 (2-4) % Baso % (Auto) 0 (0-1) % Sodium 143 (140-148) mmol/L Potassium 4.6 (3.6-5.2) mmol/L Chloride 111 H (100-108) mmol/L Carbon Dioxide 27 (21-32) mmol/L Anion Gap 9.6 (5.0-14.0) mmol/L BUN 25 H (7-18) mg/dL Creatinine 1.3 H (0.6-1.0) mg/dL Est Cr Clr Drug Dosing 27.32 mL/min Estimated GFR (MDRD) 39 L (>60) Glucose 115 H (74-106) mg/dL Calcium 8.1 L (8.5-10.1) mg/dL Troponin I 0.017 (0.000-0.056) ng/mL Med Orders - Current: Current Medications Acetaminophen (Tylenol) 650 mg PO Q4H PRN PRN Reason: Pain (Mild 1-3)/fever Last Admin: 01/23/17 16:44 Dose: 650 mg Dextrose (Glutose 15) 15 gm PO ONETIME PRN PRN Reason: Hypoglycemia Dextrose/Water (Dextrose 50% In Water) 50 ml IV ONETIME PRN PRN Reason: Hypoglycemia Docusate Sodium (Colace) 100 mg PO BID PRN PRN Reason: Constipation Last Admin: 01/23/17 08:13 Dose: 100 mg Enoxaparin Sodium (Lovenox) 30 mg SUBCUT Q24H [facility] Last Admin: 01/23/17 16:34 Dose: 30 mg Insulin Aspart (Novolog) 0 unit SUBCUT ASDIRECTED [facility] PRN Reason: Protocol Lorazepam (Ativan) 0.5 mg IV Q2H PRN PRN Reason: Anxiety Magnesium Hydroxide (Milk Of Magnesia) 30 ml PO Q12H PRN PRN Reason: Constipation Ondansetron HCl (Zofran) 4 mg IV Q4H PRN PRN Reason: Nausea/Vomiting Oxycodone HCl (Oxycodone) 5 mg PO Q4H PRN PRN Reason: Pain (moderate 4-6) Omeprazole 20mg ( (Ptom)) 0 each PO ACBREAKFAST [facility] Last Admin: 01/24/17 08:07 Dose: 1 each Pioglitazone HCl (Actos) 15 mg PO DAILY [facility] Last Admin: 01/24/17 08:07 Dose: 15 mg Polyethylene Glycol (Miralax) 17 gm PO DAILY PRN PRN Reason: Constipation Sodium Chloride (Saline Flush) 10 ml FLUSH ASDIRECTED PRN PRN Reason: Keep Vein Open Discontinued Medications Sodium Chloride (Normal Saline) 1,000 mls @ 500 mls/hr IV ASDIRECTED [facility] Stop: 01/22/17 15:01 Sodium Chloride (Normal Saline) 1,000 mls @ 100 mls/hr IV ASDIRECTED [facility] Last Admin: 01/23/17 01:12 Dose: 100 mls/hr Sodium Chloride (Normal Saline) 500 mls @ 500 mls/hr IV .BOLUS ONE Stop: 01/22/17 15:09 Last Admin: 01/22/17 14:10 Dose: 500 mls/hr Sodium Chloride (Normal Saline) 500 mls @ 500 mls/hr IV .BOLUS ONE Stop: 01/22/17 17:15 Last Admin: 01/22/17 16:23 Dose: 500 mls/hr Sodium Chloride (Normal Saline) 500 mls @ 500 mls/hr IV .BOLUS ONE Stop: 01/22/17 18:43 Last Admin: 01/22/17 17:58 Dose: 500 mls/hr Sodium Chloride (Normal Saline) 1,000 mls @ 500 mls/hr IV ASDIRECTED [facility] Stop: 01/22/17 21:00 Last Admin: 01/22/17 20:15 Dose: 500 mls/hr Magnesium Sulfate 2 gm/ Premix 50 mls @ 25 mls/hr IV ONETIME ONE Stop: 01/23/17 14:29 Last Admin: 01/23/17 13:37 Dose: 25 mls/hr Levetiracetam (Keppra) 500 mg PO NOW STA Stop: 01/22/17 10:37 Last Admin: 01/22/17 10:52 Dose: 500 mg Levetiracetam (Keppra) 500 mg PO BID MARYBETH Lorazepam (Ativan) 0.5 mg IVPUSH ONETIME ONE Stop: 01/22/17 11:48 Last Admin: 01/22/17 11:57 Dose: 0.5 mg Ondansetron HCl (Zofran Odt) 4 mg PO ONETIME ONE Stop: 01/22/17 11:41 Last Admin: 01/22/17 11:48 Dose: 4 mg Pneumococcal Polyvalent Vaccine (Pneumovax 23) 0.5 ml IM .ONCE ONE Stop: 01/23/17 09:01 Last Admin: 01/23/17 09:15 Dose: 0.5 ml Sodium Chloride (Saline Flush) 10 ml FLUSH ASDIRECTED PRN PRN Reason: Keep Vein Open Last Admin: 01/22/17 10:05 Dose: 10 ml *Q Meaningful Use (DIS) - VTE *Q VTE Criteria *Q: - Stroke *Q Stroke Criteria *Q: - AMI *Q AMI Criteria *Q:
== END 2017-01-24 12:08 | disposition home or self-care (01) ==
LOC: JP.ED 09:23 → JP.MS 12:30
PROVIDERS: ADMIT Hospitalist; ATTEND Hospitalist
DX: R55 Syncope and collapse (principal); I95.2 Hypotension due to drugs; I25.10 Atherosclerotic heart disease of native coronary artery without angina pectoris; M48.06 Spinal stenosis, lumbar region; K21.9 Gastro-esophageal reflux disease without esophagitis; E11.9 Type 2 diabetes mellitus without complications; Z79.899 Other long term (current) drug therapy; Z88.8 Allergy status to other drugs, medicaments and biological substances; Z90.49 Acquired absence of other specified parts of digestive tract; Z90.710 Acquired absence of both cervix and uterus; Z98.890 Other specified postprocedural states; Z23 Encounter for immunization
CPT/HCPCS: 36415; 70450; 70551; 80048; 80053; 82962; 83735; 84484; 85025; 93005; 96361; 96365; 96366; 96372; 96375; 99217; 99220; 99225; 99284; 99285; A9270; G0009; G0378; J1650; J2060; J3475; J7040; J7050; 90732; 93010; 96374